=== PATIENT | female | born 1960 | race Caucasian/White ===

== ENCOUNTER 2017-12-18 21:05 | Emergency (ER) | payer MEDICAID, OTHER ==
[2017-12-18] MEDS ORDERED: NS 1,000 ML IV ONE (21:23)
[2017-12-18] MEDS ORDERED: LORazepam 2 MG/ML INJ IVP ONE (21:23)
--- NOTE | 2017-12-18 21:28 | EDPHY ---
H & P Stated Complaint: seizure Time Seen by Provider: 12/18/17 21:18 HPI/ROS: CHIEF COMPLAINT: Seizure HISTORY OF PRESENT ILLNESS: The patient is a 57-year-old female with a history of traumatic brain injury and epilepsy. She takes anti seizure medication although boyfriend cannot remember which kind. They were sitting on the couch this evening when she suddenly had a generalized tonic-clonic seizure that lasted less than 5 min. She had stopped by the time paramedics arrived and gave her 2.5 of Versed. The patient is now acting more normal but is still slightly confused. Boyfriend states that she had a smaller seizure earlier today that he describes as similar to petnataly mal. He states that she does not always take her medications as prescribed but is usually pretty good about that. He denies concern for alcohol withdrawal. She does have abrasions to her tongue. She was not incontinent. Boyfriend denies any recent head trauma or fevers or infections. Severity: Moderate Modifying factors: None REVIEW OF SYSTEMS: Constitutional: denies: chills, fever, recent illness, recent injury EENTM: denies: blurred vision, double vision, nose congestion Respiratory: denies: cough, shortness of breath Cardiac: denies: chest pain, irregular heart rate, lightheadedness, palpitations Gastrointestinal/Abdominal: denies: abdominal pain, diarrhea, nausea, vomiting, blood streaked stools Genitourinary: denies: dysuria, frequency, hematuria, pain Musculoskeletal: denies: joint pain, muscle pain Skin: denies: lesions, rash, jaundice, bruising Neurological: See HPI denies: headache, numbness, paresthesia, tingling, dizziness, weakness Hematologic/Lymphatic: denies: blood clots, easy bleeding, easy bruising Immunologic/allergic: denies: HIV/AIDS, transplant 10 systems reviewed and negative except as noted EXAM: GENERAL: Postictal, slightly confused, follows commands HEAD: Atraumatic, normocephalic. EYES: Pupils equal round and reactive to light, extraocular movements intact, sclera anicteric, conjunctiva are normal. ENT: Small abrasions to anterior tongue, TMs normal, nares patent, oropharynx clear without exudates. Moist mucous membranes. NECK: Normal range of motion, supple without lymphadenopathy or JVD. LUNGS: Breath sounds clear to auscultation bilaterally and equal. No wheezes rales or rhonchi. HEART: Regular rate and rhythm without murmurs, rubs or gallops. ABDOMEN: Soft, nontender, normoactive bowel sounds. No guarding, no rebound. No masses appreciated. BACK: No CVA tenderness, no spinal tenderness, step-offs or deformities EXTREMITIES: Normal range of motion, no pitting or edema. No clubbing or cyanosis. NEUROLOGICAL: Cranial nerves II through XII grossly intact. Normal speech, normal gait. 5/5 strength, normal movement in all extremities, normal sensation , normal reflexes PSYCH: Unable to assess SKIN: Warm, dry, normal turgor, no visible rashes or lesions. Source: Patient Exam Limitations: No limitations - Personal History Current Tetanus/Diphtheria Vaccine: Unsure Current Tetanus Diphtheria and Acellular Pertussis (TDAP): Unsure - Medical/Surgical History Hx Asthma: No Hx Chronic Respiratory Disease: No Hx Diabetes: No Hx Cardiac Disease: No Hx Renal Disease: No Hx Cirrhosis: No Hx Alcoholism: No Hx HIV/AIDS: No Hx Splenectomy or Spleen Trauma: No Other PMH: Traumatic brain injury, seizures - Family History Significant Family History: No pertinent family hx - Social History Smoking Status: Never smoked Alcohol Use: Sober Drug Use: None Constitutional: Initial Vital Signs Temperature (C) 36.8 C 12/18/17 21:09 Heart Rate 68 12/18/17 21:09 Respiratory Rate 20 12/18/17 21:09 Blood Pressure 141/98 H 12/18/17 21:09 O2 Sat (%) 99 12/18/17 21:09 O2 Delivery Mode Room Air O2 (L/minute) 2 Allergies/Adverse Reactions: Unable to Assess Allergy (Unverified 12/18/17 21:13) Medical Decision Making - Diagnostics Imaging Results: Imaging Impressions Head CT 12/18/17 21:23 Impression: 1. No acute intracranial findings. If symptoms persist and clinical suspicion warrants, consider MRI. 2. 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 3. Additional findings as above. Findings discussed with CARRILLO SMALLS 12/18/2017 at 21:46. Imaging: Discussed imaging studies w/ banquet server on call Radiologist ED Course/Re-evaluation: 10:20 p.m. The patient is feeling much better. She is ambulating. She is answering questions appropriately. She still cannot tell me exactly what medication she is supposed to take. She received Ativan and Versed tonight. She promises me she will be faithful in taking her home medications and follow up with her primary physician. Her boyfriend is here and feels comfortable taking her home at this point. We discussed indications for returning. She and her boyfriend again deny any alcohol or benzodiazepine withdrawal. I will also refer her to Neurology. Differential Diagnosis: Partial list of the Differential diagnosis considered include but were not limited to; seizure, epilepsy, medication noncompliance, traumatic brain injury , withdrawal and although unlikely based on the history and physical exam, I also considered trauma, infection, tumor. I discussed these differential diagnoses and the plan with the patient as well as the usual and expected course. The patient understands that the diagnosis is provisional and that in medicine we are not always correct and that further workup is often warranted. Usual and customary warnings were given. All of the patient's questions were answered. The patient was instructed to return to the emergency department should the symptoms at all worsen or return, otherwise to followup with the physician as we discussed. - Data Points Laboratory Results: Laboratory Results 12/18/17 21:22 12/18/17 21:22 12/18/17 12/18/17 21:22 21:22 WBC 5.84 10^3/uL 10^3/uL (3.80-9.50) RBC 4.46 10^6/uL 10^6/uL (4.18-5.33) Hgb 14.5 g/dL g/dL (12.6-16.3) Hct 40.8 % % (38.0-47.0) MCV 91.5 fL fL (81.5-99.8) MCH 32.5 pg pg (27.9-34.1) MCHC 35.5 g/dL g/dL (32.4-36.7) RDW 13.5 % % (11.5-15.2) Plt Count 320 10^3/uL 10^3/uL (150-400) MPV 8.3 fL L fL (8.7-11.7) Neut % (Auto) 59.0 % % (39.3-74.2) Lymph % (Auto) 30.0 % % (15.0-45.0) [place] % (Auto) 7.4 % % (4.5-13.0) Eos % (Auto) 1.9 % % (0.6-7.6) Baso % (Auto) 0.3 % % (0.3-1.7) Nucleat RBC Rel Count 0.0 % % (0.0-0.2) Absolute Neuts (auto) 3.45 10^3/uL 10^3/uL (1.70-6.50) Absolute Lymphs (auto) 1.75 10^3/uL 10^3/uL (1.00-3.00) Absolute Monos (auto) 0.43 10^3/uL 10^3/uL (0.30-0.80) Absolute Eos (auto) 0.11 10^3/uL 10^3/uL (0.03-0.40) Absolute Basos (auto) 0.02 10^3/uL 10^3/uL (0.02-0.10) Absolute Nucleated RBC 0.00 10^3/uL 10^3/uL (0-0.01) Immature Gran % 1.4 % H % (0.0-1.1) Immature Gran # 0.08 10^3/uL 10^3/uL (0.00-0.10) Sodium 132 mEq/L L mEq/L (135-145) Potassium 4.2 mEq/L mEq/L (3.3-5.0) Chloride 93 mEq/L L mEq/L (97-110) Carbon Dioxide 24 mEq/l mEq/l (22-31) Anion Gap 15 mEq/L mEq/L (8-16) BUN 14 mg/dL mg/dL (7-23) Creatinine 0.8 mg/dL mg/dL (0.6-1.0) Estimated GFR > 60 Glucose 122 mg/dL H mg/dL (70-100) Calcium 8.9 mg/dL mg/dL (8.5-10.4) Medications Given: Discontinued Medications Sodium Chloride (Ns) 1,000 mls @ 0 mls/hr IV ONCE ONE; Wide Open PRN Reason: Protocol Stop: 12/18/17 21:24 Last Admin: 12/18/17 21:28 Dose: 1,000 mls Lorazepam (Ativan Injection) 1 mg IVP EDNOW ONE Stop: 12/18/17 21:24 Last Admin: 12/18/17 21:28 Dose: 1 mg Departure - Departure Disposition: Home, Routine, Self-Care Clinical Impression: Seizure disorder Condition: Fair Instructions: Epilepsy (ED) Referrals: Patient,NotPresent [Unknown] - As per Instructions Carrillo Tatum DO [Doctor of Osteopathy] - 5-7 days, call for appt.
[2017-12-18 21:32] LABS: PLATELET COUNT 320 10^3/uL (150-400)
[2017-12-18 21:58] VITALS: BP 156/98
== END 2017-12-18 22:35 | disposition home or self-care (01) ==
LOC: EDUNIT#
DX: G40.909 Epilepsy, unspecified, not intractable, without status epilepticus (principal); G93.89 Other specified disorders of brain; E86.9 Volume depletion, unspecified; Z87.820 Personal history of traumatic brain injury
CPT/HCPCS: 70450; 96361; 96374; 99284; J2060